=== PATIENT | female | born 1955 | race American Indian/Alaskan Native ===

== ENCOUNTER 2017-10-26 08:58 | Outpatient (CLI) | payer MEDICARE ==
--- NOTE | 2017-10-26 12:31 | Fluoroscopy Report ---
FLUOROSCOPY DEFAGRAM History: Fecal incontinence. Findings: Medical Transcription Radiology film of the abdomen demonstrates a normal bowel gas pattern. Lateral fluoroscopic cine images were obtained during defecation. 28 fluoroscopic images were captured. The images demonstrate a large enterocele throughout this exam. No evidence for rectocele or prolapse. Impression: Large enterocele.
== END 2017-10-26 08:59 | disposition home or self-care (01) ==
LOC: FLUORO 08:58
PROVIDERS: ATTEND Internal Medicine Gastroenterology
DX: K46.9 Unspecified abdominal hernia without obstruction or gangrene (principal); R15.9 Full incontinence of feces
CPT/HCPCS: 74270; Q9963

== ENCOUNTER 2018-03-30 10:58 | Outpatient (CLI) | payer MEDICARE ==
--- NOTE | 2018-03-30 14:11 | Mammography Report ---
BILATERAL DIGITAL SCREENING MAMMOGRAM with CAD: 03/30/18 CLINICAL: Routine screening. COMPARISON:None available. However, a prior mammogram was apparently done at [facility]. FINDINGS: The breasts are heterogeneously dense, which may obscure small masses. A right asymmetry on the CC view requires comparison with a prior mammogram or additional imaging.No architectural distortion or suspicious calcifications.The left breast is negative. IMPRESSION: Right asymmetry requiring further evaluation. BI-RADS CATEGORY: 0 -- Additional Evaluation Required RECOMMENDATION: Comparison with a previous mammogram. We will attempt to obtain a prior mammogram for comparison. If we do not obtain a prior mammogram within 30 days, a revised report will be issued recommending a recall for additional imaging. Please be advised that the patient should not schedule an appointment for return until adequate time (at least 2 weeks) has passed for us to obtain the prior mammogram. ACR BI-RADS MAMMOGRAPHIC CODES: 0 = Needs additional imaging evaluation; 1 = Negative; 2 = Benign; 3 = Probably benign; 4 = Suspicious; 5 = Malignant; 6 = Known biopsy-proven malignancy COMMENT: 1. Dense breast tissue, i.e., adenosis, fibrocystic changes, etc., may obscure an underlying neoplasm. 2. Approximately 10% of cancers are not detected with mammography. 3. A negative mammography report should not delay biopsy if a clinically suspicious mass is present. COMMENT: Patient follow-up letters are generated via our [employer] application.
== END 2018-03-30 10:59 | disposition home or self-care (01) ==
LOC: MAMMO 10:58
PROVIDERS: ATTEND Internal Medicine
DX: Z12.31 Encounter for screening mammogram for malignant neoplasm of breast (principal); Z90.710 Acquired absence of both cervix and uterus; Z90.721 Acquired absence of ovaries, unilateral
CPT/HCPCS: 77067

== ENCOUNTER 2019-04-07 09:00 | Outpatient (CLI) | payer MEDICARE ==
--- NOTE | 2019-04-11 14:00 | Mammography Report ---
DIGITAL SCREENING MAMMOGRAM WITH CAD, 04/07/2019 INDICATION: Routine screening mammography. TECHNIQUE: Digital bilateral 2D mammography was obtained in the craniocaudal and mediolateral obliq ue projections. This examination was interpreted with the benefit of Computer-Aided Detection analysi s. COMPARISON: 03/30/2018 and 11/05/2014 FINDINGS: Breast Density: The breasts are heterogeneously dense, which may obscure small masses. There is no evidence of dominant mass, suspicious calcifications or architectural distortion in the r ight breast. Left asymmetries require additional imaging. No architectural distortion or suspicious c alcifications of the left breast. IMPRESSION: Left asymmetries requiring additional imaging. Recommend recall for left spot compression views and left breast ultrasound if needed. Follow up recommendation: Special View: Spot Category 0: Incomplete. Needs additional imaging evaluation and/or prior mammograms for comparison. A "normal" or negative report should not discourage follow up or biopsy of a clinically significant f inding. A written summary of these findings will be mailed to the patient. The patient will be entered into a mammography reporting system which will generate a reminder letter for the patient's next appointmen t at the appropriate interval. The [employer] recommends yearly mammograms starting at age 40 and continuing as l jesenia as a woman is in good health. Breast MRI is recommended for women with an approximate 20-25% or greater lifetime risk of breast cancer, including women with a strong family history of breast or ova sigrid cancer or who have been treated for Hodgkin's disease. Signer Name: Yunier Castano MD Signed: 04/11/2019 1:56 PM Workstation Name: [id number]
--- NOTE | 2019-04-11 14:38 | Mammography Report ---
BONE DEXA CLINICAL:Postmenopausal TECHNIQUE: 3 site bone DEXA performed on an Hologic scanner. FINDINGS: The average BMD of the lumbar spine L1-L4 is 1.062g/cm squared with a T score of +0.1 and a Z score o f +1.0. The average total BMD of the left hip is 0.863 g/cm squared with a T score of -0.6and a Z score of -0 .2. The left femoral neck BMD is 0.716 g/cm squared T score of -1.2 and a Z score of -0.5. IMPRESSION: 1. WHO classification: Normal with average fracture risk based on spine and total left hip measuremen ts. 2. WHO classification Osteopenia with increased fracture risk based on left femoral neck measurements . RECOMMENDATION: Clinical correlation and routine screening. Definitions: BMD equal bone mineral density T score = BMD related to peak bone mass of young adult (Lee expressed an standard deviation) Z score = age-matched BMD expressed in SD World health organization (WHO) diagnostic criteria Normal T score greater than equal to 1 standard deviation Osteopenia T score between -1 and -2.4 standard deviation Osteoporosis T score -2.5 standard deviation or below. Note: BMD is not the only risk factor for fracture; also consider factors such as the patient's age, risk of falling, previous osteoporotic fracture, family history of osteoporotic fractures, current sm oker and low body weight. Z scores are not calculated if greater than 80 years of age. Signer Name: Yunier Castano MD Signed: 04/11/2019 2:34 PM Workstation Name: [id number]
== END 2019-04-07 09:01 | disposition home or self-care (01) ==
LOC: MAMMO 09:00
PROVIDERS: ATTEND Obstetrics & Gynecology Gynecology
DX: Z12.31 Encounter for screening mammogram for malignant neoplasm of breast (principal); Z90.710 Acquired absence of both cervix and uterus; Z98.51 Tubal ligation status; Z90.722 Acquired absence of ovaries, bilateral; R92.1 Mammographic calcification found on diagnostic imaging of breast; M81.0 Age-related osteoporosis without current pathological fracture; Z88.8 Allergy status to other drugs, medicaments and biological substances
CPT/HCPCS: 77067; 77080